=== PATIENT | male | born 1960 | race Caucasian/White ===

== ENCOUNTER 2016-11-23 19:46 | Emergency (ER) | payer SELFPAY ==
[~2016-11-23] VITALS: Ht 172.7 cm; Wt 77.0 kg
[2016-11-23] MEDS ORDERED: DOXY100C PO (20:03)
[2016-11-23] MEDS ORDERED: GABA-531 PO (20:03)
[2016-11-23] MEDS ORDERED: HYDROCODONE/ACETAMINOPHEN 5-325 MG TABLET PO ONE (20:30)
[2016-11-23] MEDS ORDERED: IBUPROFEN 600 MG TABLET PO ONE (20:30)
[2016-11-23] MEDS ORDERED: GENTAMICIN SULFATE 0.3% OPHTHALMIC SOLUTION 5 ML OD ONE (23:00)
[2016-11-23 23:13] VITALS: BP 129/80
== END 2016-11-23 23:22 | disposition home or self-care (01) ==
LOC: EMS 19:48
DX: S13.4XXA Sprain of ligaments of cervical spine, initial encounter (principal); S23.3XXA Sprain of ligaments of thoracic spine, initial encounter; S33.5XXA Sprain of ligaments of lumbar spine, initial encounter; Z87.891 Personal history of nicotine dependence; V43.62XA Car passenger injured in collision with other type car in traffic accident, initial encounter; Y93.89 Activity, other specified; Y92.89 Other specified places as the place of occurrence of the external cause; Y99.8 Other external cause status
CPT/HCPCS: 72050; 72070; 72100; 99284